=== PATIENT | male | born 1990 | race Hispanic/Latino ===

== ENCOUNTER 2019-06-11 19:53 | Emergency (ER) | payer BC ==
[2019-06-11 21:40] LABS: Absolute Lymphocytes (CBC) 3.6 K/uL (0.7-4.9); Basophils % 0.7 % (0-1.3); Hematocrit 42.5 % (39.6-49.0); Lymphocytes % 28.5 % (15.3-44.8); MPV 8.3 fL (7.6-11.3); RBC Red Blood Cell Count 4.92 M/uL (4.33-5.43)
[2019-06-11 21:40] LABS: Urine Blood NEGATIVE (NEG); Urine Glucose NEGATIVE (NEG); Urine Protein NEGATIVE (NEG)
[2019-06-11] MEDS ORDERED: NA CHLORIDE 0.9% 1,000 ML ONE (21:44)
[2019-06-11 21:45] LABS: Albumin 4.1 g/dL (3.4-5.0); Bilirubin Total 0.4 mg/dL (0.2-1.0); Potassium 3.7 mmol/L (3.5-5.1); Protein, Total 8.2 g/dL (6.4-8.2)
--- NOTE | 2019-06-11 21:49 | ER ---
Nurse's Notes [facility] Name: Major Murdock Age: 28 yrs Sex: Male : 1990 Arrival Date: 06/11/2019 Time: 20:06 Bed 18 Private MD: Diagnosis: Malaise and fatigue Presentation: 06/11 20:11 Presenting complaint: Patient states: "feeling feverish" [id number]. increased frequency ak1 of urination X3 weeks. pt c/o pain with urination starting today. Transition of care: patient was not received from another setting of care. Onset of symptoms is unknown. Risk Assessment: Do you want to hurt yourself or someone else? Patient reports no desire to harm self or others. Initial Sepsis Screen: Does the patient meet any 2 criteria? No. Patient's initial sepsis screen is negative. Does the patient have a suspected source of infection? No. Patient's initial sepsis screen is negative. Care prior to arrival: None. 20:11 Method Of Arrival: Ambulatory ak1 20:11 Acuity: TERESA 3 ak1 Triage Assessment: 20:12 General: Appears in no apparent distress. Behavior is calm, cooperative. Pain: Denies ak1 pain. Historical: - Allergies: 20:12 No Known Allergies; ak1 - Home Meds: 20:12 None [Active]; ak1 - PMHx: 20:12 None; ak1 - PSHx: 20:12 None; ak1 - Immunization history:: Adult Immunizations up to date. - Social history:: Smoking status: Patient/guardian denies using tobacco. - Ebola Screening: : No symptoms or risks identified at this time. Screenin:25 Abuse screen: Denies threats or abuse. Nutritional screening: No deficits noted. jb4 Tuberculosis screening: No symptoms or risk factors identified. Fall Risk None identified. Assessment: 20:25 General: Appears in no apparent distress. comfortable, Behavior is calm, cooperative, jb4 appropriate for age. Pain: Denies pain. Neuro: Level of Consciousness is awake, alert, obeys commands, Oriented to person, place, time, situation. Cardiovascular: Patient's skin is warm and dry. Respiratory: Airway is patent Respiratory effort is even, unlabored, Respiratory pattern is regular, symmetrical. GI: No signs and/or symptoms were reported involving the gastrointestinal system. : Reports pain with urination. EENT: No signs and/or symptoms were reported regarding the EENT system. Derm: Skin is intact, Skin is pink, warm \\T\\ dry. Musculoskeletal: Circulation, motion, and sensation intact. 21:30 Reassessment: Patient appears in no apparent distress at this time. Patient and/or jb4 family updated on plan of care and expected duration. Pain level reassessed. Patient is alert, oriented x 3, equal unlabored respirations, skin warm/dry/pink. 22:24 Reassessment: Patient appears in no apparent distress at this time. Patient and/or jb4 family updated on plan of care and expected duration. Pain level reassessed. Patient is alert, oriented x 3, equal unlabored respirations, skin warm/dry/pink. PT waiting on fluids to finish prior to discharge. Vital Signs: 20:11 BP 147 / 90; Pulse 99; Resp 18; Temp 98.7(O); Pulse Ox 99% on R/A; Weight 109.32 kg ak1 (R); Height 5 ft. 9 in. (175.26 cm) (R); Pain 0/10; 21:15 BP 125 / 74; Pulse 83; Resp 16; Pulse Ox 95% on R/A; jb4 22:15 BP 122 / 80; Pulse 86; Resp 16; Pulse Ox 100% on R/A; jb4 20:11 Body Mass Index 35.59 (109.32 kg, 175.26 cm) ak1 ED Course: 20:06 Patient arrived in ED. es 20:11 Arm band placed on Patient placed in waiting room, Patient notified of wait time. ak1 20:12 Triage completed. ak1 20:25 Patient has correct armband on for positive identification. Bed in low position. Call jb4 light in reach. Side rails up X 1. Pulse ox on. NIBP on. 20:47 Tahir Tejeda MD is Attending Physician. [facility] 20:52 Reg Saeed, ANGELY is Primary Nurse. jb4 21:08 Inserted saline lock: 20 gauge in right antecubital area, using aseptic technique. mw2 Blood collected. 22:36 No provider procedures requiring assistance completed. IV discontinued, intact, jb4 bleeding controlled, No redness/swelling at site. Pressure dressing applied. Administered Medications: 21:32 Drug: NS 0.9% 1000 ml Route: IV; Rate: 1 bolus; Site: right antecubital; jb4 22:35 Follow up: Response: No adverse reaction; IV Status: Completed infusion; IV Intake: jb4 1000ml Intake: 22:35 IV: 1000ml; Total: 1000ml. jb4 Outcome: 21:48 Discharge ordered by . abbi 22:36 Discharged to home ambulatory, with family. jb4 22:36 Condition: stable 22:36 Discharge instructions given to patient, family, Instructed on discharge instructions, follow up and referral plans. Demonstrated understanding of instructions, follow-up care. 22:37 Patient left the ED. jb4 Signatures: Tahir Tejeda MD MD cha Salyer, Edna es Krenek, Amber RN RN ak1 Reg Saeed RN RN jb4 Charlene Hernandes mw2
--- NOTE | 2019-06-11 21:50 | EDPHYS ---
Physician Documentation [facility] Name: Major Murdock Age: 28 yrs Sex: Male : 1990 Arrival Date: 06/11/2019 Time: 20:06 Bed 18 Private MD: ED Physician Tahir Tejeda HPI: 06/11 20:55 This 28 yrs old Male presents to ER via Ambulatory with complaints of body hot.abbi 20:55 maliase, thirst and polyuria. Onset: The symptoms/episode began/occurred 3 day(s) ago. abbi Severity of symptoms: At their worst the symptoms were mild in the emergency department the symptoms are unchanged. The patient has not experienced similar symptoms in the past. Historical: - Allergies: 20:12 No Known Allergies; ak1 - Home Meds: 20:12 None [Active]; ak1 - PMHx: 20:12 None; ak1 - PSHx: 20:12 None; ak1 - Immunization history:: Adult Immunizations up to date. - Social history:: Smoking status: Patient/guardian denies using tobacco. - Ebola Screening: : No symptoms or risks identified at this time. ROS: 20:56 Constitutional: Negative for fever, chills, and weight loss, Eyes: Negative for injury, abbi pain, redness, and discharge, ENT: Negative for injury, pain, and discharge, Neck: Negative for injury, pain, and swelling, Cardiovascular: Negative for chest pain, palpitations, and edema, Respiratory: Negative for shortness of breath, cough, wheezing, and pleuritic chest pain, Abdomen/GI: Negative for abdominal pain, nausea, vomiting, diarrhea, and constipation, Back: Negative for injury and pain, : Negative for injury, bleeding, discharge, and swelling, MS/Extremity: Negative for injury and deformity, Skin: Negative for injury, rash, and discoloration, Neuro: Negative for headache, weakness, numbness, tingling, and seizure, Psych: Negative for depression, anxiety, suicide ideation, homicidal ideation, and hallucinations, Allergy/Immunology: Negative for hives, rash, and allergies, Endocrine: Negative for neck swelling, polydipsia, polyuria, polyphagia, and marked weight changes, Hematologic/Lymphatic: Negative for swollen nodes, abnormal bleeding, and unusual bruising. Exam: 20:56 Constitutional: This is a well developed, well nourished patient who is awake, alert, abbi and in no acute distress. Head/Face: Normocephalic, atraumatic. Eyes: Pupils equal round and reactive to light, extra-ocular motions intact. Lids and lashes normal. Conjunctiva and sclera are non-icteric and not injected. Cornea within normal limits. Periorbital areas with no swelling, redness, or edema. ENT: Nares patent. No nasal discharge, no septal abnormalities noted. Tympanic membranes are normal and external auditory canals are clear. Oropharynx with no redness, swelling, or masses, exudates, or evidence of obstruction, uvula midline. Mucous membranes moist. Neck: Trachea midline, no thyromegaly or masses palpated, and no cervical lymphadenopathy. Supple, full range of motion without nuchal rigidity, or vertebral point tenderness. No Meningismus. Chest/axilla: Normal chest wall appearance and motion. Nontender with no deformity. No lesions are appreciated. Cardiovascular: Regular rate and rhythm with a normal S1 and S2. No gallops, murmurs, or rubs. Normal PMI, no JVD. No pulse deficits. Respiratory: Lungs have equal breath sounds bilaterally, clear to auscultation and percussion. No rales, rhonchi or wheezes noted. No increased work of breathing, no retractions or nasal flaring. Abdomen/GI: Soft, non-tender, with normal bowel sounds. No distension or tympany. No guarding or rebound. No evidence of tenderness throughout. Back: No spinal tenderness. No costovertebral tenderness. Full range of motion. Male : Normal genitalia with no discharge or lesions. Skin: Warm, dry with normal turgor. Normal color with no rashes, no lesions, and no evidence of cellulitis. MS/ Extremity: Pulses equal, no cyanosis. Neurovascular intact. Full, normal range of motion. Neuro: Awake and alert, GCS 15, oriented to person, place, time, and situation. Cranial nerves II-XII grossly intact. Motor strength 5/5 in all extremities. Sensory grossly intact. Cerebellar exam normal. Normal gait. Psych: Awake, alert, with orientation to person, place and time. Behavior, mood, and affect are within normal limits. Vital Signs: 20:11 BP 147 / 90; Pulse 99; Resp 18; Temp 98.7(O); Pulse Ox 99% on R/A; Weight 109.32 kg ak1 (R); Height 5 ft. 9 in. (175.26 cm) (R); Pain 0/10; 21:15 BP 125 / 74; Pulse 83; Resp 16; Pulse Ox 95% on R/A; jb4 22:15 BP 122 / 80; Pulse 86; Resp 16; Pulse Ox 100% on R/A; jb4 20:11 Body Mass Index 35.59 (109.32 kg, 175.26 cm) ak1 MDM: 20:47 Patient medically screened. [facility] 20:56 Data reviewed: vital signs, nurses notes, lab test result(s), CBC, electrolytes, [facility] hepatic panel, urinalysis. 06/11 20:54 Order name: CBC with Diff [facility] 06/11 20:54 Order name: Comprehensive Metabolic Panel; Complete Time: 21:48 [facility] 06/11 20:54 Order name: Urine Dipstick-Ancillary (obtain specimen); Complete Time: 20:58 [facility] 06/11 20:57 Order name: CBC with Automated Diff; Complete Time: 21:44 [facility] 06/11 21:09 Order name: Urine Dipstick--Ancillary (enter results); Complete Time: 21:44 ar5 Administered Medications: 21:32 Drug: NS 0.9% 1000 ml Route: IV; Rate: 1 bolus; Site: right antecubital; jb4 22:35 Follow up: Response: No adverse reaction; IV Status: Completed infusion; IV Intake: jb4 1000ml Disposition: 06/11/19 21:48 Discharged to Home. Impression: Malaise and fatigue. - Condition is Stable. - Discharge Instructions: Obesity, Adult, Weakness, Weakness, [id number], Obesity, Adult, [id number]. - Medication Reconciliation Form, Thank You Letter, Antibiotic Education, Prescription Opioid Use form. - Follow up: Private Physician; When: 2 - 3 days; Reason: Recheck today's complaints, Re-evaluation by your physician. - Problem is new. - Symptoms have improved. Signatures: Dispatcher [employer] EDTahir Dinh MD MD cha Krenek, Amber, RN RN ak1 Reg Saeed RN RN jb4 Corrections: (The following items were deleted from the chart) 22:37 21:48 06/11/2019 21:48 Discharged to Home. Impression: Malaise and fatigue. Condition jb4 is Stable. Discharge Instructions: Weakness, Weakness, [id number]. Forms are Medication Reconciliation Form, Thank You Letter, Antibiotic Education, Prescription Opioid Use. Follow up: Private Physician; When: 2 - 3 days; Reason: Recheck today's complaints, Re-evaluation by your physician. Problem is new. Symptoms have improved. abbi
[2019-06-12 00:41] VITALS: TEMP 98.7
[2019-06-12 00:44] VITALS: BP 122/80; O2SAT 100
== END 2019-06-11 22:37 | disposition home or self-care (01) ==
LOC: ER 19:53
DX: R53.81 Other malaise (principal); R53.83 Other fatigue
CPT/HCPCS: 36415; 80053; 81003; 85025; 96360; 99284; J7030